=== PATIENT | female | born 1985 | race Caucasian/White ===

== ENCOUNTER 2023-09-18 21:11 | Emergency (ER) | payer MEDICAID ==
[2023-09-18 21:28] VITALS: O2SAT 100
--- NOTE | 2023-09-18 21:38 | ED Physician Documentation ---
PD HPI OPHTHO - Stated complaint Stated Complaint: R EYE SWELLING - Chief complaint Chief Complaint: General - History obtained from History obtained from: Patient - Additional information Additional information: Patient is a 38-year-old female presenting for evaluation of irritation and redness to her right eye that she woke up with this morning. Patient reports that feels like something is in her eye but she has not been able to see anything. She does wear contacts but has not had them in today. She uses daily wear contacts and does dispose of them daily. She states she does not sleep in her contacts. She denies working with wood or metal or anything else that could have gotten into her eye. Her vision appears to be at her baseline. No fever, congestion, runny nose or other cold-like symptoms. Patient also reports a history of atrial fibrillation and SVT and has required ablations in the past. For the past 3 to 4 days that she has had episodes that wake her up in the middle of the night where it feels like her heart is racing and pounding. The last episode was last night and she has not felt it today. She denies chest pain or feeling short of air. She currently does not have any symptoms related to this. Nothing makes it better or worse. Review of Systems Constitutional: denies: Fever Cardiac: reports: Palpitations. 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 : None HEENT: None Psych: None Musculoskeletal: None Derm: None - Past Surgical History Past Surgical History: Yes Cardiovascular: Other - Present Medications Home Medications: Ambulatory Orders Medication Instructions Recorded Confirmed Ofloxacin 0.3% Ophth Drops 2 drops RIGHTEYE Q6HR 5 Days #5 ml 09/18/23 [Ocuflox 0.3% Ophth Drops] - Allergies Allergies/Adverse Reactions: Allergies Allergy/AdvReac Type Severity Reaction Status Date / Time No Known Drug Allergies Allergy Verified 09/18/23 21:14 - Social History Does the pt smoke?: No Smoking Status: Never smoker Does the pt drink ETOH?: No Does the pt have substance abuse?: No - Immunizations Immunizations are current?: Yes PD ED PE NORMAL - General General: Alert and oriented X 3, No acute distress, Well developed/nourished - HEENT HEENT: Atraumatic, PERRL, EOMI, Moist mucous membranes, Pharynx benign - Neck Neck: Supple, no meningeal sign - Cardiac Cardiac: RRR, Strong equal pulses - Respiratory Respiratory: No respiratory distress, Clear bilaterally - Derm Derm: Warm and dry - Extremities Extremities: No edema - Neuro Neuro: Normal speech PD ED PE EXPANDED - Eyes Eyes: Visual acuity - see nn, PERRL, EOMI, Normal eyelids, Injected conj/sclera (Mild conjunctival injection to right eye), Normal corneas, Anterior chambers clear, Other (No foreign body noted to right upper eyelid on eversion, patient reports foreign body sensation to lower lateral aspect and on close evaluation there is an eyelash On the inside of the Lower eyelid Which I removed in its entirety). No: Eyelid swelling, Eyelid erythema, Corneal FB, Corneal abrasion, Corneal ulcer, Fluorescein uptake Results - Vitals Vitals: Vital Signs - 24 hr 09/18/23 09/18/23 21:14 22:57 Temperature 36.5 C 36.6 C Heart Rate 80 74 Respiratory 18 20 Rate Blood Pressure 135/81 H 128/74 O2 Saturation 100 100 Oxygen O2 Source Room air - EKG (time done) 2138 EKG releavant findings:: EKG personally interpreted by author of this note. Relevant findings are: Rate 73, Normal sinus rhythm, no STEMI, QTc 490, no priors for comparison - Labs Labs: Laboratory Tests 09/18/23 09/18/23 22:01 22:01 WBC 7.7 RBC 4.05 L Hgb 14.0 Hct 41.1 MCV 101.5 H MCH 34.6 H MCHC 34.1 RDW 12.2 Plt Count 300 MPV 9.7 Neut # (Auto) 3.3 Lymph # (Auto) 3.5 Clark # (Auto) 0.7 Eos # (Auto) 0.2 Baso # (Auto) 0.0 Absolute Nucleated RBC 0.00 Nucleated RBC % 0.0 Sodium 140 Potassium 3.2 L Chloride 102 Carbon Dioxide 29 Anion Gap 9.0 BUN 8 Creatinine 0.8 Estimated GFR (MDRD) 79 L Glucose 100 Calcium 9.6 Magnesium 1.5 L Total Bilirubin 0.3 AST 24 ALT 28 Alkaline Phosphatase 61 Total Protein 6.6 Albumin 4.2 Globulin 2.4 Albumin/Globulin Ratio 1.8 TSH 3.92 PD Medical Decision Making - ED course Complexity details: reviewed results, re-evaluated patient, d/w patient ED course: Patient is a 38-year-old female presenting for evaluation of 2 concerns. First is right eye irritation. She does wear contacts but they have not been in today. Visual acuity is intact and there is no signs of increased ocular pressure. No trauma. No signs of orbital cellulitis or preseptal cellulitis. She does have injected conjunctive a and I did remove a small eyelash from the lower inner eyelid. Will start on antibiotics in the event there is a bacterial component as she has been rubbing her eye often today. Patient also has a history of A-fib and SVT and reports feeling intermittent palpitations this past several days that feels like a heart pounding sensation. No chest pain or shortness of air. PERC negative. EKG here demonstrates a sinus rhythm. Again his symptoms do not suggest ischemia. CBC, chemistries and TSH were obtained and reviewed. Mild hypokalemia which was replaced orally. Patient counseled on need for close follow-up. She has not had any symptoms of the palpitations here. She is also advised on concerning symptoms to return for. Departure - Departure Disposition: 01 Home, Self Care Clinical Impression: Foreign body of right eye, Conjunctivitis, right eye, Palpitations, Hypokalemia Condition: Stable Instructions: ED Conjunctivitis Bacterial, ED Eye Particle Conjunctiva FB Rslv, ED Palpitations Prescriptions: Ofloxacin 0.3% Ophth Drops [Ocuflox 0.3% Ophth Drops] 2 drops RIGHTEYE Q6HR 5 Days #5 ml Comments: You are found to have an eyelash in your right eye which could be causing your symptoms. However I am starting you on an antibiotic eyedrop as you wear contacts in case there is also an infection I have sent this prescription to the [facility] pharmacy. Please do not use contacts in your eyes until you finish the course of the antibiotics and also when your symptoms resolve. Please return to the ER if your symptoms are not getting better. You were also evaluated for palpitations and your potassium was slightly low so we did give you potassium replacement. 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 Again I would recommend return to the ER if you have any worsening symptoms such as chest pain, fast heart rate, dizziness, feeling short of air or any other concerns. Forms: PCP List Discharge Date/Time: 09/18/23 23:03
[2023-09-18 22:04] LABS: BASOPHILS % (AUTO) 0.5 %; EOSINOPHILS # (AUTO) 0.2 10^3/uL (0.0-0.7); EOSINOPHILS % (AUTO) 2.3 %; HCT - HEMATOCRIT 41.1 % (37.0-47.0); LYMPHOCYTES # (AUTO) 3.5 10^3/uL (1.5-3.5); LYMPHOCYTES % (AUTO) 44.9 %; MEAN CORPUSCULAR HEMOGLOBIN 34.6 pg (27.0-31.0); MEAN CORPUSCULAR HGB CONC 34.1 g/dL (32.0-36.0); MEAN CORPUSCULAR VOLUME 101.5 fL (81.0-99.0); MEAN PLATELET VOLUME 9.7 fL (7.9-10.8); MONOCYTES # (AUTO) 0.7 10^3/uL (0.0-1.0); MONOCYTES % (AUTO) 9.4 %; NEUTROPHILS # (AUTO) 3.3 10^3/uL (1.5-6.6); NEUTROPHILS % (AUTO) 42.6 %; PLT - PLATELET COUNT 300 10^3/uL (130-450); RED BLOOD COUNT 4.05 10^6/uL (4.20-5.40); RED CELL DISTRIBUTION WIDTH 12.2 % (12.0-15.0); WHITE BLOOD COUNT 7.7 x10^3/uL (4.8-10.8)
[2023-09-18] MEDS ORDERED: OFLOXACIN 0.3% OPHTH DROPS RIGHTEYE STA (22:12)
[2023-09-18 22:31] LABS: ALBUMIN 4.2 g/dL (3.2-5.5); ALBUMIN/GLOBULIN RATIO 1.8 (1.0-2.2); BILIRUBIN,TOTAL 0.3 mg/dL (0.2-1.0); CALCIUM 9.6 mg/dL (8.5-10.3); CREATININE 0.8 mg/dL (0.6-1.3); MAGNESIUM 1.5 mg/dL (1.7-2.3); POTASSIUM 3.2 mmol/L (3.5-4.5); TOTAL PROTEIN 6.6 g/dL (6.4-8.9)
[2023-09-18 22:40] LABS: THYROID STIMULATING HORMONE 3.92 uIU/mL (0.34-5.60)
[2023-09-18] MEDS ORDERED: POTASSIUM CHLORIDE 20 MEQ TABLET PO ONE (22:42)
[2023-09-18 23:05] VITALS: BP 128/74
== END 2023-09-18 23:03 | disposition home or self-care (01) ==
LOC: ED 21:11
DX: T15.81XA Foreign body in other and multiple parts of external eye, right eye, initial encounter (principal); H10.9 Unspecified conjunctivitis; E87.6 Hypokalemia; I48.91 Unspecified atrial fibrillation
CPT/HCPCS: 36415; 80053; 83735; 84443; 85025; 93005; 99284; A9270

== ENCOUNTER 2024-01-10 20:40 | Emergency (ER) | payer MEDICAID ==
--- NOTE | 2024-01-10 20:43 | ED Physician Documentation ---
History of Present Illness - Stated complaint Stated Complaint: HIGH HEART RATE - History obtained from History obtained from: Patient - Additonal information Additional information: HPI from patient. 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 There is not an irregular or "skipped beat" quality to the palpitations. Onset was at rest and she says her heart rates were in the 120s when seated, with worsening of the palpitations when she would stand correlating with increase to 160s heart rate. She denies chest pain. Very mild shortness of breath although this has been going on for up to a week associated with a mild cough which patient suspects is possibly an upper respiratory infection. Patient has a history of atrial fibrillation and has undergone ablation in the past for this. 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 : None HEENT: None Psych: None Musculoskeletal: None Derm: None - Past Surgical History Past Surgical History: Yes Cardiovascular: Other - Present Medications Home Medications: Ambulatory Orders Medication Instructions Recorded Confirmed Ofloxacin 0.3% Ophth Drops 2 drops RIGHTEYE Q6HR 5 Days #5 ml 09/18/23 [Ocuflox 0.3% Ophth Drops] - Allergies Allergies/Adverse Reactions: Allergies Allergy/AdvReac Type Severity Reaction Status Date / Time No Known Drug Allergies Allergy Verified 01/10/24 20:56 - Social History Does the pt smoke?: No Smoking Status: Never smoker Does the pt drink ETOH?: No Does the pt have substance abuse?: No - Immunizations Immunizations are current?: Yes PD ED PE NORMAL - Vitals Vital signs reviewed: Yes - General General: Alert and oriented X 3, No acute distress, Well developed/nourished - Cardiac Cardiac: No murmur - Respiratory Respiratory: No respiratory distress, Clear bilaterally - Abdomen Abdomen: Soft, Non tender - Extremities Extremities: No edema PD ED PE EXPANDED - Cardiac Cardiac: Tachy, Regular Rhythm Results - Vitals Vitals: Oxygen O2 Source Room air - EKG (time done) No standard instances EKG releavant findings:: EKG personally interpreted by author of this note. Relevant findings are: Rate: Rate (enter#) (108), Tachy Rhythm: Sinus tachycardia [place]: Normal Intervals: Normal [place] QRS: Normal Ischemia: Normal ST segments - Labs Labs: Laboratory Tests 01/10/24 01/10/24 01/10/24 20:52 20:52 20:52 WBC 9.7 RBC 4.80 Hgb 15.5 Hct 47.6 H MCV 99.2 H MCH 32.3 H MCHC 32.6 RDW 13.1 Plt Count 348 MPV 10.0 Neut # (Auto) 4.0 Lymph # (Auto) 4.5 H Will # (Auto) 0.9 Eos # (Auto) 0.2 Baso # (Auto) 0.1 Absolute Nucleated RBC 0.00 Nucleated RBC % 0.0 Sodium 139 Potassium 3.4 L Chloride 105 Carbon Dioxide 23 Anion Gap 11.0 BUN 7 Creatinine 0.6 Estimated GFR (MDRD) 111 Glucose 103 Calcium 9.9 Magnesium Troponin I High Sens < 2.3 L TSH 4.63 Urine HCG, Qual 01/10/24 01/10/24 20:52 21:36 WBC RBC Hgb Hct MCV MCH MCHC RDW Plt Count MPV Neut # (Auto) Lymph # (Auto) Will # (Auto) Eos # (Auto) Baso # (Auto) Absolute Nucleated RBC Nucleated RBC % Sodium Potassium Chloride Carbon Dioxide Anion Gap BUN Creatinine Estimated GFR (MDRD) Glucose Calcium Magnesium 1.6 L Troponin I High Sens TSH Urine HCG, Qual NEGATIVE - Rads (name of study) chest xray Relevant Findings:: Prelim report reviewed, See rad report PD Medical Decision Making - ED course Complexity details: reviewed results, re-evaluated patient, considered differential, d/w patient ED course: No concerning nor diagnostic findings on tonight's tests including EKG (ST), CXR, blood tests. Normal hs-cTn and TSH. minimally low potassium (3.4) and magnesium (1.6). She is given 20meq potassium bicarbonate prior to d/c. She is also given 1 liter NS IV bolus. 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 Return precautions reviewed, recommended f/u with PCP. Departure - Departure Disposition: 01 Home, Self Care Clinical Impression: Rapid palpitations Condition: Good Instructions: ED Potassium Deficiency, ED Palpitations Comments: There were no particularly concerning and no diagnostic findings on your tests tonight, including EKG, blood test, and chest x-ray. The only exceptions are, as we discussed, minimally low potassium (3.4), as well as minimally low magnesium (1.6). Both of these values are just below a normal range. Because a low potassium can cause/contribute to cardiac rate/rhythm problems, you were given a one-time dose of oral potassium prior to discharge in the ER. I do not think the magnesium is nearly low enough to mandate any type of repletion at this time. Forms: PCP List Discharge Date/Time: 01/10/24 22:46
[2024-01-10 20:58] LABS: BASOPHILS # (AUTO) 0.1 10^3/uL (0.0-0.1); BASOPHILS % (AUTO) 0.9 %; EOSINOPHILS # (AUTO) 0.2 10^3/uL (0.0-0.7); EOSINOPHILS % (AUTO) 1.8 %; HCT - HEMATOCRIT 47.6 % (37.0-47.0); HGB - HEMOGLOBIN 15.5 g/dL (12.0-16.0); LYMPHOCYTES # (AUTO) 4.5 10^3/uL (1.5-3.5); LYMPHOCYTES % (AUTO) 46.2 %; MEAN CORPUSCULAR HEMOGLOBIN 32.3 pg (27.0-31.0); MEAN CORPUSCULAR HGB CONC 32.6 g/dL (32.0-36.0); MEAN CORPUSCULAR VOLUME 99.2 fL (81.0-99.0); MONOCYTES # (AUTO) 0.9 10^3/uL (0.0-1.0); MONOCYTES % (AUTO) 9.7 %; NEUTROPHILS % (AUTO) 41.2 %; PLT - PLATELET COUNT 348 10^3/uL (130-450); RED CELL DISTRIBUTION WIDTH 13.1 % (12.0-15.0); WHITE BLOOD COUNT 9.7 x10^3/uL (4.8-10.8)
[2024-01-10] MEDS: SODIUM CHLORIDE 0.9% 1,000 ML IV STA (21:00)
[2024-01-10 21:12] LABS: CALCIUM 9.9 mg/dL (8.5-10.3); CREATININE 0.6 mg/dL (0.6-1.3); POTASSIUM 3.4 mmol/L (3.5-4.5)
--- NOTE | 2024-01-10 21:19 | XRAY Report ---
PROCEDURE: Chest 2V INDICATIONS: palpitations TECHNIQUE: 2 views of the chest were acquired. COMPARISON: None. FINDINGS: Surgical changes and devices: None. Lungs and pleura: No pleural effusions or pneumothorax. Lungs are clear. Mediastinum: Mediastinal contours appear normal. Heart size is normal. Bones and chest wall: No suspicious bony lesions. Overlying soft tissues appear unremarkable. IMPRESSION: No acute cardiopulmonary process. Reviewed by: Enrique De La Rosa MD on 01/10/2024 9:17 PM PDT Approved by: Enrique De La Rosa MD on 01/10/2024 9:17 PM PDT Station ID: [id number]
[2024-01-10 21:26] LABS: THYROID STIMULATING HORMONE 4.63 uIU/mL (0.34-5.60)
[2024-01-10 21:45] LABS: HCG UR QUAL NEGATIVE
[2024-01-10] MEDS: POTASSIUM BICARB 25 MEQ TABLET PO STA (22:28)
[2024-01-10 22:41] VITALS: BP 119/86; O2SAT 100
== END 2024-01-10 22:46 | disposition home or self-care (01) ==
LOC: ED 20:40
DX: R00.2 Palpitations (principal); I48.91 Unspecified atrial fibrillation; E87.6 Hypokalemia; E83.42 Hypomagnesemia; Z79.899 Other long term (current) drug therapy
CPT/HCPCS: 36415; 71046; 80048; 81025; 83735; 84443; 84484; 85025; 93005; 99283; 99284; A9270

== ENCOUNTER 2024-02-19 09:54 | Outpatient (CLI) | payer MEDICAID ==
[2024-02-19 10:03] LABS: HCT - HEMATOCRIT 46.2 % (37.0-47.0); MEAN CORPUSCULAR HEMOGLOBIN 32.5 pg (27.0-31.0); MEAN CORPUSCULAR HGB CONC 32.5 g/dL (32.0-36.0); MEAN CORPUSCULAR VOLUME 100.2 fL (81.0-99.0); MEAN PLATELET VOLUME 9.6 fL (7.9-10.8); RED BLOOD COUNT 4.61 10^6/uL (4.20-5.40); RED CELL DISTRIBUTION WIDTH 12.8 % (12.0-15.0); WHITE BLOOD COUNT 7.9 x10^3/uL (4.8-10.8)
[2024-02-19 10:21] LABS: ALBUMIN 4.7 g/dL (3.2-5.5); ALBUMIN/GLOBULIN RATIO 1.4 (1.0-2.2); BILIRUBIN,TOTAL 0.9 mg/dL (0.2-1.0); CALCIUM 10.1 mg/dL (8.5-10.3); CREATININE 0.6 mg/dL (0.6-1.3); POTASSIUM 4.2 mmol/L (3.5-4.5)
[2024-02-19 10:32] LABS: THYROID STIMULATING HORMONE 1.81 uIU/mL (0.34-5.60)
== END 2024-02-19 09:55 | disposition home or self-care (01) ==
LOC: LAB 09:54
PROVIDERS: ATTEND Obstetrics & Gynecology
DX: E55.9 Vitamin D deficiency, unspecified (principal); R63.4 Abnormal weight loss
CPT/HCPCS: 36415; 80053; 82306; 82607; 84443; 85027

== ENCOUNTER 2024-05-01 08:45 | Emergency (ER) | payer MEDICAID ==
[2024-05-01 09:18] LABS: BASOPHILS # (AUTO) 0.1 10^3/uL (0.0-0.1); BASOPHILS % (AUTO) 0.5 %; EOSINOPHILS # (AUTO) 0.2 10^3/uL (0.0-0.7); EOSINOPHILS % (AUTO) 1.2 %; HCT - HEMATOCRIT 43.3 % (37.0-47.0); HGB - HEMOGLOBIN 14.5 g/dL (12.0-16.0); LYMPHOCYTES # (AUTO) 2.7 10^3/uL (1.5-3.5); LYMPHOCYTES % (AUTO) 20.5 %; MEAN CORPUSCULAR HEMOGLOBIN 32.9 pg (27.0-31.0); MEAN CORPUSCULAR HGB CONC 33.5 g/dL (32.0-36.0); MEAN CORPUSCULAR VOLUME 98.2 fL (81.0-99.0); MEAN PLATELET VOLUME 10.1 fL (7.9-10.8); MONOCYTES # (AUTO) 1.1 10^3/uL (0.0-1.0); MONOCYTES % (AUTO) 8.3 %; NEUTROPHILS # (AUTO) 9.2 10^3/uL (1.5-6.6); NEUTROPHILS % (AUTO) 69.3 %; PLT - PLATELET COUNT 292 10^3/uL (130-450); RED BLOOD COUNT 4.41 10^6/uL (4.20-5.40); RED CELL DISTRIBUTION WIDTH 12.2 % (12.0-15.0); WHITE BLOOD COUNT 13.3 x10^3/uL (4.8-10.8)
[2024-05-01 09:20] LABS: BILIRUBIN,URINE NEGATIVE (NEGATIVE); GLUCOSE, URINE (UA) NEGATIVE (NEGATIVE); KETONES,URINE (UA) NEGATIVE (NEGATIVE); LEUKOCYTE ESTERASE, URINE MODERATE (NEGATIVE); NITRITE,URINE NEGATIVE (NEGATIVE); OCCULT BLOOD,URINE NEGATIVE (NEGATIVE); PH,URINE 5.5 PH (5.0-7.5); PROTEIN,URINE NEGATIVE (NEGATIVE); UROBILINOGEN,URINE 0.2 (NORMAL) E.U./dL (NORMAL)
[2024-05-01 09:21] LABS: CLARITY,URINE HAZY (CLEAR)
[2024-05-01 09:22] LABS: HCG UR QUAL NEGATIVE
[2024-05-01 09:33] LABS: ALBUMIN 4.8 g/dL (3.2-5.5); ALBUMIN/GLOBULIN RATIO 1.4 (1.0-2.2); BILIRUBIN,TOTAL 0.9 mg/dL (0.2-1.0); CALCIUM 9.6 mg/dL (8.5-10.3); CREATININE 0.6 mg/dL (0.6-1.3); POTASSIUM 3.6 mmol/L (3.5-4.5); TOTAL PROTEIN 8.2 g/dL (6.4-8.9)
[2024-05-01 09:33] LABS: BACTERIA,URINE Moderate /HPF (None Seen); RBC,URINE None Seen /HPF (0-5); SQUAMOUS EPITHELIAL CELL,UR MOD Squamous (<= Few)
--- NOTE | 2024-05-01 10:05 | ED Physician Documentation ---
PD HPI ABD PAIN - Stated complaint Stated Complaint: ABD PX - Chief complaint Chief Complaint: Abd Pain - History obtained from History obtained from: Patient - History of Present Illness Timing - onset: Yesterday Timing - details: Abrupt onset, Still present (much worse this morning. Poor sleep overnight due to it.), Waxing and waning Quality: Sharp, Stabbing, Pain Location: RLQ, Suprapubic, LLQ Improved by: No: Laying still, Meds (ibuprofen) Worsened by: Moving. No: Breathing Associated symptoms: Nausea. 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 connective tissue disorder - Past Surgical History Past Surgical History: Yes General: Cholecystectomy Ortho: Other /PILOT PLANT OPERATOR HELPER: Tubal ligation Cardiovascular: Other HEENT: Tonsil/Adenoidectomy, Other - Present Medications Home Medications: Ambulatory Orders Medication Instructions Recorded Confirmed HYDROcod/ACETAM 5/325 [[place] 5/325] 1 ea PO Q6H PRN #14 tablet 05/01/24 Naproxen 500 mg PO BID #20 tab 05/01/24 cephALEXin [Keflex] 500 mg PO TID #15 cap 05/01/24 metroNIDAZOLE [Flagyl] 500 mg PO BID 7 Days #14 tablet 05/01/24 - Allergies Allergies/Adverse Reactions: Allergies Allergy/AdvReac Type Severity Reaction Status Date / Time No Known Drug Allergies Allergy Verified 05/01/24 08:54 - Social History Does the pt smoke?: No Smoking Status: Never smoker Does the pt drink ETOH?: Yes ETOH Use: Other Does the pt have substance abuse?: No - Immunizations Immunizations are current?: Yes - POLST Patient has POLST: No Results - Vitals Vitals: Vital Signs - 24 hr 05/01/24 05/01/24 05/01/24 08:55 10:50 12:00 Temperature 36.5 C Heart Rate 101 H 73 73 Respiratory 16 18 18 Rate Blood Pressure 127/85 H 116/74 106/67 O2 Saturation 100 100 100 05/01/24 14:04 Temperature 36.4 C L Heart Rate 72 Respiratory 18 Rate Blood Pressure 101/71 O2 Saturation 99 Oxygen O2 Source Room air - Labs Labs: Laboratory Tests 05/01/24 05/01/24 05/01/24 09:00 09:10 09:10 WBC 13.3 H RBC 4.41 Hgb 14.5 Hct 43.3 MCV 98.2 MCH 32.9 H MCHC 33.5 RDW 12.2 Plt Count 292 MPV 10.1 Neut # (Auto) 9.2 H Lymph # (Auto) 2.7 Johnson # (Auto) 1.1 H Eos # (Auto) 0.2 Baso # (Auto) 0.1 Absolute Nucleated RBC 0.00 Nucleated RBC % 0.0 Sodium 136 Potassium 3.6 Chloride 101 Carbon Dioxide 26 Anion Gap 9.0 BUN 10 Creatinine 0.6 Estimated GFR (MDRD) 111 Glucose 102 Calcium 9.6 Total Bilirubin 0.9 AST 11 ALT 10 Alkaline Phosphatase 47 Total Protein 8.2 Albumin 4.8 Globulin 3.4 Albumin/Globulin Ratio 1.4 Lipase 13 Urine Color YELLOW Urine Clarity HAZY Urine pH 5.5 Ur Specific [place] 1.025 Urine Protein NEGATIVE Urine Glucose (UA) NEGATIVE Urine Ketones NEGATIVE Urine Occult Blood NEGATIVE Urine Nitrite NEGATIVE Urine Bilirubin NEGATIVE Urine Urobilinogen 0.2 (NORMAL) Ur Leukocyte Esterase MODERATE H Urine RBC None Seen Urine WBC 6-10 H Ur Squamous Epith Cells MOD Squamous H Urine Bacteria Moderate H Ur Microscopic Review INDICATED Urine Culture Comments NOT INDICATED Urine HCG, Qual NEGATIVE C. glabrata (PCR) C. krusei (PCR) [place]alka species DNA T. vaginalis (PCR) Bact Vaginosis (PCR) 05/01/24 14:00 WBC RBC Hgb Hct MCV MCH MCHC RDW Plt Count MPV Neut # (Auto) Lymph # (Auto) Johnson # (Auto) Eos # (Auto) Baso # (Auto) Absolute Nucleated RBC Nucleated RBC % Sodium Potassium Chloride Carbon Dioxide Anion Gap BUN Creatinine Estimated GFR (MDRD) Glucose Calcium Total Bilirubin AST ALT Alkaline Phosphatase Total Protein Albumin Globulin Albumin/Globulin Ratio Lipase Urine Color Urine Clarity Urine pH Ur Specific [place] Urine Protein Urine Glucose (UA) Urine Ketones Urine Occult Blood Urine Nitrite Urine Bilirubin Urine Urobilinogen Ur Leukocyte Esterase Urine RBC Urine WBC Ur Squamous Epith Cells Urine Bacteria Ur Microscopic Review Urine Culture Comments Urine HCG, Qual C. glabrata (PCR) NEGATIVE C. krusei (PCR) NEGATIVE [place]a species DNA NEGATIVE T. vaginalis (PCR) NEGATIVE Bact Vaginosis (PCR) POSITIVE A PD Medical Decision Making - ED course Complexity details: reviewed results (normal appendix, no obstruction. no other finding to account for the pain. ), re-evaluated patient (pain improved with meds in ED. ), considered differential (lower pain starting and wrsening, seem concerning for appy, diverticulitis, UTI, ovarian, among others. ) Reviewed Lab Results: patient is haviing pain. Considering what would not show on tests done, still consider possible UTI base on UA. could be mid cycle ovarian pain. She denies vaginal discharge but had had some dysparunia this past week. So can check for BV/etc. ED course: later lab result after discharge is vaginal test positive for BV. will add flagyl and sent to pharmacy. WIll have nursing notify her. Departure - Departure Disposition: 01 Home, Self Care Clinical Impression: Lower abdominal pain Condition: Stable Record reviewed to determine appropriate education?: Yes Instructions: ED Abdominal Pain Female Non-Specific Abdominal Pain Prescriptions: metroNIDAZOLE [Flagyl] 500 mg PO BID 7 Days #14 tablet cephALEXin [Keflex] 500 mg PO TID #15 cap Naproxen 500 mg PO BID #20 tab HYDROcod/ACETAM 5/325 [[place] 5/325] 1 ea PO Q6H PRN #14 tablet PRN Reason: Pain Comments: Your CT scan did not show any obvious abnormality to account for the pain. They did comment on some increased venous vascularity around the uterus and pelvis. This sometimes can come about at times of increased blood flow such as midcycle or menstrual period however they do comment that is not a large amount and could be just normal for you. I do not think this would be giving the pain that you are having though. No signs of other abnormalities and in particular no signs of local inflammation in the intestine such as colitis or diverticulitis, the no kidney stones, the appendix is normal, and no obvious cysts. Obviously you are still having pain there so would presume some inflammatory process going on that is not having a visual abnormality for the CT scan. I would suggest some anti-inflammatory such as naproxen twice daily with food for the next several days to week. Add Tylenol every 4-6 hours if needed for pains or hydrocodone/acetaminophen if needed for worse pain. Your urine does not show an obvious infection per se but there is some white cells and bacteria to it. We could treat for a bladder infection just in case. We did to have you obtain a vaginal swab to look for vaginal infections such as bacteria or yeast. This should result later today or this evening and we will call you if there is any positive results. I sent prescriptions to your preferred pharmacy. Recheck if not improved over the next several days and resolved by 3 to 5 days. Return if worsening severely. Forms: PCP List Discharge Date/Time: 05/01/24 14:04
[2024-05-01] MEDS: ONDANSETRON 4 MG/2 ML VIAL IVP STA (10:20)
[2024-05-01] MEDS: KETOROLAC 15 MG/ML VIAL IVP STA ×2 (10:20→13:39)
[2024-05-01] MEDS: SODIUM CHLORIDE 0.9% 1,000 ML IV STA (10:21)
[2024-05-01] MEDS ORDERED: iohexoL-300 100 ML VIAL ONE (10:27)
--- NOTE | 2024-05-01 11:59 | CT Report ---
PROCEDURE: Abdomen/Pelvis W INDICATIONS: lower left and right AP since yest CONTRAST: Omni 300 100ml TECHNIQUE: After the administration of intravenous contrast, a CT scan of the abdomen and pelvis was performed. Images were recorded and evaluated at appropriate window settings. Reformats: coronal and sagittal. F or radiation dose reduction, the following was used: automated exposure control, adjustment of mA and /or kV according to patient size. COMPARISON: None FINDINGS: Image quality: Diagnostic Lower chest: Bibasilar atelectasis. Normal heart size where visualized Liver: Unremarkable Gallbladder and biliary system: Absent, nondilated Pancreas: No ductal dilation Spleen: Nonenlarged Adrenals: No discrete nodules Kidneys: No solid mass or hydronephrosis Vessels and lymph nodes: The main portal vein is patent. No abdominal aortic aneurysm. No pathologic lymph nodes by size criteria. Bowel and peritoneum: No evidence of small bowel obstruction. No pathologic ascites or drainable absc ess. No acute inflammatory changes identified on CT. The appendix appears nondilated. Body wall: Unremarkable Pelvis: Bladder is underdistended and not well evaluated. Prominent reproductive organs and prominent surrounding veins., Probably physiologic. Bones: No acute or suspicious osseous lesion. There are degenerative changes. IMPRESSION: Nondilated appendix. No small bowel obstruction. Prominent pelvic veins, sometimes seen in the setting of pelvic congestion. If there is further concern for pelvic organ pathology, consider further evaluation with ultrasound. Other findings as above. Reviewed by: Betito Maldonado MD on 05/01/2024 11:58 AM PDT Approved by: Betito Maldonado MD on 05/01/2024 11:58 AM PDT Station ID: [id number]
[2024-05-01] MEDS: ACETAMINOPHEN 500 MG TABLET PO STA (13:39)
[2024-05-01] MEDS: cephALEXin 250 MG CAPSULE PO STA (13:39)
[2024-05-01] MEDS: iohexoL-300 100 ML VIAL IVP ONE (13:43)
[2024-05-01 14:14] VITALS: BP 101/71; O2SAT 99
[2024-05-01 16:49] LABS: BACTERIAL VAGINOSIS DNA POSITIVE (NEGATIVE); CANDIDA GLABRATA DNA NEGATIVE (NEGATIVE); CANDIDA GROUP DNA NEGATIVE (NEGATIVE); CANDIDA KRUSEI DNA NEGATIVE (NEGATIVE); TRICHOMONAS VAGINALIS DNA NEGATIVE (NEGATIVE)
== END 2024-05-01 14:04 | disposition home or self-care (01) ==
LOC: ED 08:45
DX: N76.0 Acute vaginitis (principal); R10.31 Right lower quadrant pain; R10.32 Left lower quadrant pain; I48.91 Unspecified atrial fibrillation; Z79.899 Other long term (current) drug therapy
CPT/HCPCS: 36415; 74177; 80053; 81001; 81025; 81514; 83690; 85025; 96374; 96376; 99283; 99284; A9270; Q9967; 81003; 87086

== ENCOUNTER 2024-06-05 15:10 | Outpatient (CLI) | payer MEDICAID ==
--- NOTE | 2024-06-07 15:33 | Mammography Report ---
BILATERAL DIGITAL SCREENING MAMMOGRAM 3D/2D: 06/05/2024 CLINICAL: Baseline exam. Routine screening. No prior exams were available for comparison. Both breasts are heterogeneously dense, which may obscure small masses (category c / 51-75% glandular tissue). No significant masses, calcifications, or other findings are seen in either breast. IMPRESSION: NEGATIVE There is no mammographic evidence of malignancy. A 1 year screening mammogram is recommended. Based on the Tyrer Cuzick model (a risk assessment model) the patient's lifetime risk is 9.3% and her 10 year risk is 1.1%. According to the ACR, ACS, and NCCN guidelines, an annual breast MRI exam chidi g with mammogram is recommended if the patient's lifetime risk is 20% or greater. This exam was interpreted at Station ID: [id number]. NOTE: For mammograms, a report in lay terms will be sent to the patient. Approximately 15% of breast malignancies will not be visualized mammographically. In the management of a palpable breast mass, a negative mammogram must not discourage biopsy of a clinically suspicious lesion. Electronically Signed By: Josy godinez/asim:06/06/2024 14:17:52 letter sent: No_Letter ACR BI-RADS Category 1: Negative [id number] PARENCHYMAL PATTERN: (D) - The breast(s) demonstrate(s) heterogeneously dense fibroglandular parfatoumatay ma. BI-RADS CATEGORY: (1) - 1 RECOMMENDATION: (ANNUAL) - Recommend routine annual screening mammography. [id number] 1 year screening LATERALITY: (B)
== END 2024-06-05 15:11 | disposition home or self-care (01) ==
LOC: DI 15:10
PROVIDERS: ATTEND Obstetrics & Gynecology
DX: Z12.31 Encounter for screening mammogram for malignant neoplasm of breast (principal); R92.333 Mammographic heterogeneous density, bilateral breasts

== ENCOUNTER 2024-06-24 15:16 | Outpatient (CLI) | payer MEDICAID ==
--- NOTE | 2024-06-24 16:38 | XRAY Report ---
PROCEDURE: Ankle 3+V LT INDICATIONS: REPETITIVE STRAIN INJURY OF LEFT ANKLE TECHNIQUE: 3 views of the ankle were acquired. COMPARISON: None. FINDINGS: Bones: No fractures or dislocations. Ankle mortise is normally aligned. No suspicious bony lesions . Dense lesion with well-corticated margins along the lateral aspect of the tibia, probably a bone is land. Plantar calcaneal enthesophyte. Soft tissues: No tibiotalar joint effusion. Achilles tendon appears normal. IMPRESSION: No acute bony abnormality. Reviewed by: Enrique De La Rosa MD on 06/24/2024 4:37 PM PDT Approved by: Enrique De La Rosa MD on 06/24/2024 4:37 PM PDT Station ID: [id number]
== END 2024-06-24 15:17 | disposition home or self-care (01) ==
LOC: DI 15:16
PROVIDERS: ATTEND Physician Assistant Medical
DX: M70.972 Unspecified soft tissue disorder related to use, overuse and pressure, left ankle and foot (principal)